=== PATIENT | female | born 1950 | race Caucasian/White ===

== ENCOUNTER → 2017-12-15 | Day surgery (SDC) | payer OTHER ==
[~2017-12-15] MED LIST: KETO10TA2 PO; LEVO-T100 MCG PO; NORVASC2.5 MG PO
== END | disposition home or self-care (01) ==
LOC: ADM 12-09 08:15 → CIR.AMB 08:15
DX: M80.08XA Age-related osteoporosis with current pathological fracture, vertebra(e), initial encounter for fracture (principal)